=== PATIENT | female | born 1975 | race Caucasian/White ===

== ENCOUNTER → 2017-01-26 | Outpatient (CLI) | payer MEDICAID ==
[~2017-01-26] MED LIST: ESCI10TA PO; NORT10CA PO; ONDA8TAB9 PO; PANT40TA3 PO; PREG75CA PO
== END | disposition home or self-care (01) ==
LOC: RAD 16:19
PROVIDERS: ATTEND Internal Medicine
DX: K31.84 Gastroparesis (principal)
CPT/HCPCS: 74000

== ENCOUNTER → 2017-01-29 | Outpatient (CLI) | payer MEDICAID | END | disposition home or self-care (01) | LOC: RAD 16:09 | PROVIDERS: ATTEND Internal Medicine | DX: K31.84 Gastroparesis (principal) | CPT/HCPCS: 74000 ==

== ENCOUNTER → 2017-01-31 | Outpatient (CLI) | payer MEDICAID | END | disposition home or self-care (01) | LOC: RAD 15:39 | PROVIDERS: ATTEND Internal Medicine | DX: K59.00 Constipation, unspecified (principal); N28.89 Other specified disorders of kidney and ureter; K31.84 Gastroparesis | CPT/HCPCS: 74000 ==